=== PATIENT | female | born 1955 | race Caucasian/White ===

== ENCOUNTER 2017-02-01 13:07 | Emergency (ER) | payer OTHER ==
[~2017-02-01] VITALS: Ht 167.6 cm; Wt 78.0 kg
[~2017-02-01 13:07] MED LIST: AMOX500T PO; LISI-360 PO; Z.0.NO CURRENT MEDS
[2017-02-01 13:09] VITALS: BP 167/104; PULSE 93; RESP 18; TEMP 98; O2SAT 99
--- NOTE | 2017-02-01 13:36 | PD ---
HPI Chief Complaint: Complaint Time Seen by Provider: 13:21 Travel History International Travel<30 days: No Contact w/Intl Traveler<30days: No Traveled to known affect area: No History of Present Illness HPI 61yo F with PMH of HTN and nephrolithiasis presents to the ED with dysuria and hematuria a few hours ago. Said she feels fullness in her bladder but no pain. Denies any fever, chest pain, sob, n/v, abdominal pain, back pain or trauma. Has not had menstrual period for years. PFSH Past Medical History Hx Anticoagulant Therapy: No Cardiovascular Problems: No Chemotherapy: No Chest Pain: Yes (SCHEDUALED FOR STRESS TEST AND ECHO TOMORROW) Cerebrovascular Accident: No Diabetes: No Diminished Hearing: No GERD: Yes Kidney Stones: Yes (2 CURRENTLY, SUPPOSED TO HAVE LITHOTRIPSY) Reproductive: Yes (ENDOMETRIOSIS) Respiratory: No Immunizations Current: No Ulcer: Yes ?: Not Menopausal: Yes Past Surgical History Genitourinary Surgery: Yes (CYSTOSCOPY FOR KIDNEY STONE REMOVAL) Hysterectomy: No Social History Alcohol Use: Yes (SOCIALLY) Tobacco Use: Yes (1 PPD) Substance Use: No Allergies-Medications (Allergen,Severity, Reaction): Coded Allergies: codeine (Unverified Allergy, Mild, ITCH, SOB, 10/29/16) hydrocodone (Unverified Allergy, Mild, ITCH,SOB, 10/29/16) ketorolac (Unverified Allergy, Mild, TREMORS, 10/29/16) meperidine (Unverified Allergy, Mild, SOB, 10/29/16) oxycodone (Unverified Allergy, Mild, ITCH, SOB, 10/29/16) Reported Meds & Prescriptions Reported Meds & Active Scripts Active Amoxil (Amoxicillin) 500 Mg Cap 500 Mg PO TID Lisinopril 10 Mg Tab 10 Mg PO DAILY Reported No Current Meds (Miscellaneous Medication) Misc Review of Systems Except as stated in HPI: all other systems reviewed are Neg Physical Exam Narrative GENERAL: 61yo F not in distress. SKIN: Focused skin assessment warm/dry. HEAD: Atraumatic. Normocephalic. EYES: Pupils equal and round. No scleral icterus. No injection or drainage. CARDIOVASCULAR: Regular rate and rhythm. No murmur appreciated. RESPIRATORY: No accessory muscle use. Clear to auscultation. Breath sounds equal bilaterally. GASTROINTESTINAL: Abdomen soft, non-tender, nondistended. No rebound tenderness or guarding. BACK: No CVA tenderness bilaterally. MUSCULOSKELETAL: No obvious deformities. No clubbing. No cyanosis. No edema. NEUROLOGICAL: Awake and alert. No obvious cranial nerve deficits. Motor grossly within normal limits. Normal speech. PSYCHIATRIC: Appropriate mood and affect; insight and judgment normal. Data Data Last Documented VS Vital Signs Date Time Temp Pulse Resp B/P (MAP) Pulse Ox O2 Delivery O2 Flow Rate FiO2 02/01/17 13:09 98.0 93 18 167/104 (125) 99 Orders Orders Complete Blood Count With Diff (02/01/17 13:29) Basic Metabolic Panel (Bmp) (02/01/17 13:29) Urinalysis - C+S If Indicated (02/01/17 13:29) Urine Culture (02/01/17 13:35) Sulfamet-Trimeth Ds 800-160 Mg (Bactrim (02/01/17 15:30) Labs Laboratory Tests Test 02/01/17 13:35 White Blood Count 14.1 TH/MM3 Red Blood Count 4.69 MIL/MM3 Hemoglobin 14.5 GM/DL Hematocrit 41.7 % Mean Corpuscular Volume 88.8 FL Mean Corpuscular Hemoglobin 30.8 PG Mean Corpuscular Hemoglobin Concent 34.7 % Red Cell Distribution Width 13.1 % Platelet Count 248 TH/MM3 Mean Platelet Volume 8.7 FL Neutrophils (%) (Auto) 78.9 % Lymphocytes (%) (Auto) 12.1 % Monocytes (%) (Auto) 7.2 % Eosinophils (%) (Auto) 1.6 % Basophils (%) (Auto) 0.2 % Neutrophils # (Auto) 11.1 TH/MM3 Lymphocytes # (Auto) 1.7 TH/MM3 Monocytes # (Auto) 1.0 TH/MM3 Eosinophils # (Auto) 0.2 TH/MM3 Basophils # (Auto) 0.0 TH/MM3 CBC Comment DIFF FINAL Differential Comment Urine Color YELLOW Urine Turbidity HAZY Urine pH 6.5 Urine Specific [place] 1.014 Urine Protein 30 mg/dL Urine Glucose (UA) NEG mg/dL Urine Ketones NEG mg/dL Urine Occult Blood LARGE Urine Nitrite NEG Urine Bilirubin NEG Urine Urobilinogen LESS THAN 2.0 MG/DL Urine Leukocyte Esterase LARGE Urine RBC /hpf Urine WBC 9-14 /hpf Urine WBC Clumps OCC Urine Bacteria FEW /hpf Microscopic Urinalysis Comment CULTURE INDICATED Blood Urea Nitrogen 20 MG/DL Creatinine 0.78 MG/DL Random Glucose 84 MG/DL Calcium Level 8.7 MG/DL Sodium Level 137 MEQ/L Potassium Level 3.5 MEQ/L Chloride Level 105 MEQ/L Carbon Dioxide Level 29.4 MEQ/L Anion Gap 3 MEQ/L Estimat Glomerular Filtration Rate 76 ML/MIN [facility] Medical Decision Making Medical Screen Exam Complete: Yes Emergency Medical Condition: Yes Differential Diagnosis UTI vs. nephrolithiasis Narrative Course 61yo F with dysuria and hematuria. Pt is well appearing with no fever, nausea or abdominal pain. Labs reviewed, leukocytosis at 14.1. Creatinine normal at 0.78. UA showed large blood. Large leukocyte. WBC 9-14. Pt given first dose of bactrim. Does not want anything for pain right now because she has no pain. Return precautions given. Diagnosis Primary Impression: UTI (urinary tract infection) Qualified Codes: N39.0 - Urinary tract infection, site not specified; R31.9 - Hematuria, unspecified Patient Instructions: General Instructions Departure Forms: Tests/Procedures Additional Instructions: Please follow up with your primary care physician in 3-7 days. Return to the ED if symptoms worsen. Med/Other Pt SpecificInfo: Prescription(s) given Scripts Sulfamethoxazole-Trimethoprim (Bactrim DS) 800-160 Mg Tab 1 TAB PO BID for Infection, #14 TAB 0 Refills Prov: Cherise Salter 02/01/17 Disposition: 01 DISCHARGE HOME Condition: Stable JoieMaryCherise DO Feb 01, 2017 13:36
[2017-02-01 13:55] LABS: AUTOMATED NEUTROPHIL # 11.1 TH/MM3 (1.8-7.7); BASOPHIL % 0.2 % (0.0-2.0); BLOOD, URINE LARGE (NEG); EOSINOPHIL # 0.2 TH/MM3 (0-0.4); EOSINOPHIL % 1.6 % (0.0-4.0); GLUCOSE,URINE NEG (NEG); HEMATOCRIT 41.7 % (35.0-46.0); HEMO FLAGS DIFF FINAL; KETONE, URINE NEG (NEG); LYMPH % 12.1 % (9.0-44.0); LYMPHOCYTE # 1.7 TH/MM3 (1.0-4.8); MEAN CELL VOLUME 88.8 FL (80.0-100.0); MEAN CORPUSCULAR HEMOGLOBIN 30.8 PG (27.0-34.0); MEAN CORPUSCULAR HGB CONC 34.7 % (32.0-36.0); MONO % 7.2 % (0.0-8.0); NEUT % 78.9 % (16.0-70.0); NITRITE,URINE NEG (NEG); PH, URINE 6.5 (5.0-8.5); PLATELET COUNT 248 TH/MM3 (150-450); RED BLOOD COUNT 4.69 MIL/MM3 (4.00-5.30); RED CELL DISTRIBUTION WIDTH 13.1 % (11.6-17.2); URINE COLOR YELLOW (YELLW/STRAW); WHITE BLOOD COUNT 14.1 TH/MM3 (4.0-11.0)
[2017-02-01 14:07] LABS: BICARBONATE 29.4 MEQ/L (21.0-32.0); POTASSIUM 3.5 MEQ/L (3.5-5.1)
[2017-02-01 14:22] LABS: BACTERIA, URINE FEW /hpf; COMMENT (UR) CULTURE INDICATED; CULTURE IF INDICATED CULTURE INDICATED
[2017-02-01] MEDS ORDERED: SULFAMETHOXAZOLE-TRIMETHOPRIM DS 800-160 MG TAB PO ONE (15:30)
[2017-02-01] MEDS ORDERED: BACT800T5 PO (15:30)
== END 2017-02-01 15:41 | disposition home or self-care (01) ==
LOC: NEPD 13:07
DX: N39.0 Urinary tract infection, site not specified (principal); R30.0 Dysuria; B96.20 Unspecified Escherichia coli [E. coli] as the cause of diseases classified elsewhere; I10 Essential (primary) hypertension; Z72.0 Tobacco use
CPT/HCPCS: 80048; 81001; 85025; 87077; 87086; 87186; 99283

== ENCOUNTER 2017-02-04 17:23 | Emergency (ER) | payer OTHER ==
[~2017-02-04] VITALS: Ht 167.6 cm; Wt 78.0 kg
[~2017-02-04 17:23] MED LIST changes: +BACT800T5 PO
[2017-02-04 17:24] VITALS: BP 173/100; PULSE 90; RESP 18; TEMP 98.9; O2SAT 97
[2017-02-04] MEDS ORDERED: SODIUM CHLOR 0.9% 1000 ML INJ 1,000 ML IV ONE (17:56)
[2017-02-04 17:57] VITALS: BP 158/98; PULSE 82; RESP 16; O2SAT 99
[2017-02-04] MEDS ORDERED: SODIUM CHLORIDE 0.9% FLUSH 10 ML FLUSH IVF PRN (18:00)
--- NOTE | 2017-02-04 18:02 | PD ---
HPI Chief Complaint: Flank/Kidney Pain Time Seen by Provider: 17:46 Travel History International Travel<30 days: No Contact w/Intl Traveler<30days: No Traveled to known affect area: No History of Present Illness HPI 61-year-old female presents to the emergency department for evaluation of right flank pain, urinary symptoms. Patient was seen emergency Department a February 02, 2017. She states her symptoms started that day. She had lab work completed in a UA which showed a urinary tract infection. She was started on Bactrim. However, looking at microbiology results, it was positive for Escherichia coli which is resistant to Bactrim. Patient states her symptoms have not improved. Patient is allergic to multiple pain medication is unsure what she can take. She denies any fevers. She does report chills. No chest pain or shortness of breath. She reports right flank pain, urinary symptoms. She does also report history nephrolithiasis and states that she has a 10 mm stone they're watching. Severity is moderate. No glass rating or alleviating factors. No radiation of pain. Pain is achy, sharp. PFSH Past Medical History Hx Anticoagulant Therapy: No Cardiovascular Problems: No Chemotherapy: No Chest Pain: Yes (SCHEDUALED FOR STRESS TEST AND ECHO TOMORROW) Cerebrovascular Accident: No Diabetes: No Diminished Hearing: No GERD: Yes Kidney Stones: Yes (2 CURRENTLY, SUPPOSED TO HAVE LITHOTRIPSY) Reproductive: Yes (ENDOMETRIOSIS) Respiratory: No Immunizations Current: No Ulcer: Yes ?: Not Menopausal: Yes Past Surgical History Genitourinary Surgery: Yes (CYSTOSCOPY FOR KIDNEY STONE REMOVAL) Hysterectomy: No Social History Alcohol Use: Yes (SOCIALLY) Tobacco Use: Yes (1 PPD) Substance Use: No Allergies-Medications (Allergen,Severity, Reaction): Coded Allergies: codeine (Unverified Allergy, Mild, ITCH, SOB, 02/04/17) hydrocodone (Unverified Allergy, Mild, ITCH,SOB, 02/04/17) ketorolac (Unverified Allergy, Mild, TREMORS, 02/04/17) meperidine (Unverified Allergy, Mild, SOB, 02/04/17) oxycodone (Unverified Allergy, Mild, ITCH, SOB, 02/04/17) Reported Meds & Prescriptions Reported Meds & Active Scripts Active Tramadol (Tramadol HCl) 50 Mg Tab 50 Mg PO Q6H PRN Keflex (Cephalexin) 500 Mg Cap 500 Mg PO Q8H 7 Days Lisinopril 10 mg (Lisinopril) 10 Mg Tab 10 Mg PO DAILY Reported Valium (Diazepam) 10 Mg Tab 10 Mg PO DAILY PRN Lisinopril 10 Mg Tab 10 Mg PO DAILY Review of Systems Except as stated in HPI: all other systems reviewed are Neg Physical Exam Narrative GENERAL: Well-nourished, well-developed female patient, ambulatory. Afebrile. SKIN: Focused skin assessment warm/dry. HEAD: Normocephalic. Atraumatic. EYES: No scleral icterus. No injection or drainage. NECK: Supple, trachea midline. No JVD or lymphadenopathy. CARDIOVASCULAR: Regular rate and rhythm without murmurs, gallops, or rubs. RESPIRATORY: Breath sounds equal bilaterally. No accessory muscle use. Lungs sounds are clear to auscultation GASTROINTESTINAL: Abdomen soft, non-tender, nondistended. MUSCULOSKELETAL: No cyanosis, or edema. BACK: Nontender without obvious deformity. Right CVA tenderness. Data Data Last Documented VS Vital Signs Date Time Temp Pulse Resp B/P (MAP) Pulse Ox O2 Delivery O2 Flow Rate FiO2 02/04/17 18:33 81 16 148/91 (110) 99 Room Air 02/04/17 17:24 98.9 Orders Orders Complete Blood Count With Diff (02/04/17 17:56) Comprehensive Metabolic Panel (02/04/17 17:56) Urinalysis - C+S If Indicated (02/04/17 17:56) Ct Abd/Pel W/O Iv Contrast (02/04/17 17:56) Ecg Monitoring (02/04/17 17:56) Iv Access Insert/Monitor (02/04/17 17:56) Sodium Chloride 0.9% Flush (Ns Flush) (02/04/17 18:00) Sodium Chlor 0.9% 1000 Ml Inj (Ns 1000 M (02/04/17 17:56) Acetaminophen (Tylenol) (02/04/17 18:30) Urine Culture (02/04/17 18:00) Ceftriaxone Inj (Rocephin Inj) (02/04/17 18:45) Tramadol (Ultram) (02/04/17 19:00) Labs Laboratory Tests Test 02/04/17 18:00 White Blood Count 11.1 TH/MM3 Red Blood Count 4.61 MIL/MM3 Hemoglobin 14.5 GM/DL Hematocrit 41.8 % Mean Corpuscular Volume 90.7 FL Mean Corpuscular Hemoglobin 31.5 PG Mean Corpuscular Hemoglobin Concent 34.8 % Red Cell Distribution Width 13.3 % Platelet Count 249 TH/MM3 Mean Platelet Volume 8.7 FL Neutrophils (%) (Auto) 73.1 % Lymphocytes (%) (Auto) 16.1 % Monocytes (%) (Auto) 9.2 % Eosinophils (%) (Auto) 1.3 % Basophils (%) (Auto) 0.3 % Neutrophils # (Auto) 8.1 TH/MM3 Lymphocytes # (Auto) 1.8 TH/MM3 Monocytes # (Auto) 1.0 TH/MM3 Eosinophils # (Auto) 0.1 TH/MM3 Basophils # (Auto) 0.0 TH/MM3 CBC Comment DIFF FINAL Differential Comment Urine Color LIGHT-YELLOW Urine Turbidity CLEAR Urine pH 6.0 Urine Specific [place] 1.010 Urine Protein TRACE mg/dL Urine Glucose (UA) NEG mg/dL Urine Ketones NEG mg/dL Urine Occult Blood SMALL Urine Nitrite POS Urine Bilirubin NEG Urine Urobilinogen LESS THAN 2.0 MG/DL Urine Leukocyte Esterase LARGE Urine RBC 14 /hpf Urine WBC 46 /hpf Urine Amorphous Sediment RARE Urine Bacteria MANY /hpf Urine Mucus FEW /lpf Microscopic Urinalysis Comment CULTURE INDICATED Blood Urea Nitrogen 18 MG/DL Creatinine 0.97 MG/DL Random Glucose 89 MG/DL Total Protein 7.8 GM/DL Albumin 3.7 GM/DL Calcium Level 8.3 MG/DL Alkaline Phosphatase 69 U/L Aspartate Amino Transf (AST/SGOT) 16 U/L Alanine Aminotransferase (ALT/SGPT) 20 U/L Total Bilirubin 0.3 MG/DL Sodium Level 135 MEQ/L Potassium Level 3.9 MEQ/L Chloride Level 103 MEQ/L Carbon Dioxide Level 24.5 MEQ/L Anion Gap 8 MEQ/L Estimat Glomerular Filtration Rate 59 ML/MIN [facility] Medical Decision Making Medical Screen Exam Complete: Yes Emergency Medical Condition: Yes Medical Record Reviewed: Yes Interpretation(s) CT abdomen/pelvis- CONCLUSION: 1. Dilation of the right ureter without calcified stone in the ureter or urinary bladder. Induration of the soft tissues about the proximal right ureter suggests possible recently passed stone. 2. Bilateral upper pole renal stones, measuring 1.6 cm on the right side and 6 mm on the left side. Differential Diagnosis UTI versus pyelonephritis versus nephrolithiasis Narrative Course 61-year-old female presents to the emergency department for evaluation of right flank pain, urinary symptoms that started 2 days ago. She was Bactrim, but it does appear that the bacteria is resistant to Bactrim. CBC, CMP, UA, CT abdomen /pelvis without contrast are ordered and pending. Patient is given normal saline 1 L IV bolus. CBC with leukocytosis of 11.1. CMP shows no acute abnormality. UA shows large leukocyte esterase, 46 WBC, many bacteria. CT abdomen/pelvis shows . Dilation of the right ureter without calcified stone in the ureter or urinary bladder. Induration of the soft tissues about the proximal right ureter suggests possible recently passed stone; Bilateral upper pole renal stones, measuring 1.6 cm on the right side and 6 mm on the left side. Patient is allergic to most narcotics, as well as Toradol. She is also states she does not think she can take morphine. She does think she has had tramadol in the past without issue. Patient is given Tylenol 1 g by mouth. She is given Rocephin 1 g IV. She'll be discharged with a prescription for Keflex. Patient is also given tramadol 50mg PO as well as a prescription for tramadol. The patient was discharged in stable condition with instructions, including return instructions and follow up instructions. Diagnosis Primary Impression: Urinary tract infection Qualified Codes: N30.01 - Acute cystitis with hematuria Additional Impression: Flank pain Referrals: Urologist call for appointment Patient Instructions: Flank Pain (ED), General Instructions, Urinary Tract Infection in Women (ED) Additional Instructions: Take antibiotic as directed until gone. Take tramadol as directed as needed for pain. Caution this can make you drowsy so do not drive after taking. Follow-up with your primary care physician. Return to the emergency department for any acute worsening of symptoms. Med/Other Pt SpecificInfo: Prescription(s) given Scripts Tramadol (Tramadol) 50 Mg Tab 50 MG PO Q6H Y for PAIN, #12 TAB 0 Refills Prov: Vi Limon 02/04/17 Cephalexin (Keflex) 500 Mg Cap 500 MG PO Q8H for Infection for 7 Days, #21 CAP 0 Refills Prov: Vi Limon 02/04/17 Disposition: 01 DISCHARGE HOME Condition: Stable Vi Limon Feb 04, 2017 18:02
[2017-02-04 18:14] LABS: AUTOMATED NEUTROPHIL # 8.1 TH/MM3 (1.8-7.7); BASOPHIL % 0.3 % (0.0-2.0); EOSINOPHIL # 0.1 TH/MM3 (0-0.4); EOSINOPHIL % 1.3 % (0.0-4.0); HEMATOCRIT 41.8 % (35.0-46.0); HEMO FLAGS DIFF FINAL; LYMPH % 16.1 % (9.0-44.0); LYMPHOCYTE # 1.8 TH/MM3 (1.0-4.8); MEAN CELL VOLUME 90.7 FL (80.0-100.0); MEAN CORPUSCULAR HEMOGLOBIN 31.5 PG (27.0-34.0); MEAN CORPUSCULAR HGB CONC 34.8 % (32.0-36.0); MONO % 9.2 % (0.0-8.0); NEUT % 73.1 % (16.0-70.0); PLATELET COUNT 249 TH/MM3 (150-450); RED BLOOD COUNT 4.61 MIL/MM3 (4.00-5.30); RED CELL DISTRIBUTION WIDTH 13.3 % (11.6-17.2); WHITE BLOOD COUNT 11.1 TH/MM3 (4.0-11.0)
[2017-02-04 18:25] LABS: BACTERIA, URINE MANY /hpf; BLOOD, URINE SMALL (NEG); COMMENT (UR) CULTURE INDICATED; CULTURE IF INDICATED CULTURE INDICATED; GLUCOSE,URINE NEG (NEG); KETONE, URINE NEG (NEG); MUCUS URINE FEW /lpf (OCC); NITRITE,URINE POS (NEG); URINE COLOR LIGHT-YELLOW (YELLW/STRAW)
--- NOTE | 2017-02-04 18:29 | RADRPT ---
EXAM DATE/TIME: 02/04/2017 18:12 [place] COMPARISON: No previous studies available for comparison. INDICATIONS : Right flank pain since Friday ORAL CONTRAST: No oral contrast ingested. RADIATION DOSE: 21.24 CTDIvol (mGy) MEDICAL HISTORY : Ulcers. Renal calculi. SURGICAL HISTORY : Cystoscope ENCOUNTER: Initial ACUITY: 3 days PAIN SCALE: 7/10 LOCATION: Right Abdomen TECHNIQUE: Renal colic protocol. Volumetric scanning of the abdomen and pelvis was performed. Using automated exposure control and adjustment of the mA and/or kV according to patient size, radiation dose was kep t as low as reasonably achievable to obtain optimal diagnostic quality images. DICOM format image da ta is available electronically for review and comparison. FINDINGS: Right side: There is a dominant calcified stone in the upper pole measuring 1.6 cm. There is mild dilation of th e collecting system of the right kidney and moderate dilation of the proximal and mid right ureter wi thout calcified stones in the ureter. There is some induration of the soft tissues about the proxima l right ureter. In the lower pole, there is a low density rounded area in the parenchyma measuring 1 .7 cm. Left side: There is a solitary 6 mm calcified stone in the upper pole collecting system. No significant dilatio n of the collecting system the left kidney. The mid left ureter is mildly prominent, but no calcific ations seen along the course of left ureter. Bladder: Smooth margins. No calcifications within the lumen. Other: No dilated loops of small or large bowel. The appendix is identified in the right lower quadrant has a normal appearance. No calcified gallstones. Mild patchy areas of atelectasis in the lower lungs. There is a 6 mm nodule in the left posterior costophrenic angle. CONCLUSION: 1. Dilation of the right ureter without calcified stone in the ureter or urinary bladder. Induration of the soft tissues about the proximal right ureter suggests possible recently passed stone. 2. Bilateral upper pole renal stones, measuring 1.6 cm on the right side and 6 mm on the left side. Jaylon Castañeda MD on February 04, 2017 at 18:22 Board Certified Radiologist. This report was verified electronically.
[2017-02-04] MEDS ORDERED: ACETAMINOPHEN 500 MG CPLT PO ONE (18:30)
[2017-02-04 18:33] VITALS: BP 148/91; PULSE 81; RESP 16; O2SAT 99
[2017-02-04 18:33] LABS: ANION GAP 8 MEQ/L (5-15); AST (GOT) 16 U/L (15-37); BICARBONATE 24.5 MEQ/L (21.0-32.0); BLOOD UREA NITROGEN 18 MG/DL (7-18); CHLORIDE 103 MEQ/L (98-107); GLOMERULAR FILTRATION RATE 59 ML/MIN (>89); POTASSIUM 3.9 MEQ/L (3.5-5.1); SODIUM (NA) 135 MEQ/L (136-145)
[2017-02-04] MEDS ORDERED: DIAZ10 PO (18:33)
[2017-02-04] MEDS ORDERED: LISI10TA3 PO (18:33)
[2017-02-04 18:37] LABS: ALKALINE PHOSPHATASE 69 U/L (45-117); ALT (GPT) 20 U/L (10-53); TOTAL BILIRUBIN ADULT 0.3 MG/DL (0.2-1.0)
[2017-02-04] MEDS ORDERED: cefTRIAXone INJ 1,000 MG in SODIUM CHLORIDE 0.9% INJ 100 ML IV ONE (18:45)
[2017-02-04] MEDS ORDERED: CEPH-460 PO (18:49)
[2017-02-04] MEDS ORDERED: TRAM50TA PO (18:50)
[2017-02-04] MEDS ORDERED: traMADol HCL 50 MG TAB PO ONE (19:00)
== END 2017-02-04 19:35 | disposition home or self-care (01) ==
LOC: NEPE 17:23
DX: N39.0 Urinary tract infection, site not specified (principal); B96.20 Unspecified Escherichia coli [E. coli] as the cause of diseases classified elsewhere; D72.829 Elevated white blood cell count, unspecified; N20.0 Calculus of kidney; K21.9 Gastro-esophageal reflux disease without esophagitis; F17.200 Nicotine dependence, unspecified, uncomplicated; Z79.899 Other long term (current) drug therapy; Z88.5 Allergy status to narcotic agent; Z88.8 Allergy status to other drugs, medicaments and biological substances
CPT/HCPCS: 74176; 80053; 81001; 85025; 87077; 87086; 87186; 96361; 96365; 99285; J0696; J7030